=== PATIENT | male | born 1985 | race African-American/Black ===

== ENCOUNTER 2017-05-21 06:32 | Day surgery (SDC) | payer OTHER ==
[~2017-05-21] VITALS: Ht 188 cm; Wt 74.8 kg
[2017-05-21 07:11] VITALS: BP 129/76; Ht 188 cm; Wt 74.8 kg
[2017-05-21] MEDS ORDERED: HYDROCODONE-APA1 TAB PO (09:07)
--- NOTE | 2017-05-21 17:57 | NUR ---
1100--IV DC'D. SHANNON CROFT 1115--DISCHARGE INSTRUCTIONS GIVEN, PT VERBALIZES UNDERSTANDING. PT OFF UNIT VIA WC. SHANNON CROFT
--- NOTE | 2017-06-08 14:05 | OP ---
PATIENT NAME: MELYSSA CALIX MEDICAL RECORD: [id number] :81 LOCATION:D.OPS ADMISSION DATE: SURGEON: JOYCE CHRISTOPHER MD DATE OF OPERATION: 05/21/2017 Orthopedic Surgery Operative Note PREOPERATIVE DIAGNOSES: Left scaphoid fracture. POSTOPERATIVE DIAGNOSIS: Left scaphoid fracture. PROCEDURE: Open reduction internal fixation of left scaphoid fracture. SURGEON: Joyce Christopher MD ANESTHESIA: General. INTRAOPERATIVE COMPLICATIONS: None. OPERATIVE SUMMARY IN DETAIL: After obtaining the appropriate preoperative orthopedic surgery consent as well as anesthetic consultation, evaluation and clearance, the patient was brought to the operating room and placed on the operating table in supine position. After adequate general laryngeal mask was administered, tourniquet was placed about the proximal aspect of the left upper extremity. Left upper extremity was then prepped and draped in a routine sterile fashion. The arm was elevated and exsanguinated, tourniquet inflated to 250 mmHg. Under direct fluoroscopic guidance, a guide pin for the double compression cannulated screw was placed from the proximal pole of the scaphoid to the distal pole of the scaphoid across the fracture site. Measurements were taken. A screw was put into place with good compression across the fracture site. Radiographs were taken and submitted for final radiologist review. The wound was irrigated and closed with a single suture. A volar splint was applied. The patient was awakened, taken to recovery room in stable condition. All final needle and sponge counts were correct. TRANSINT:[id number] Voice Confirmation ID: [id number] DOCUMENT ID: [id number] JOYCE CHRISTOPHER MD at 1405 CC: [id number] DICTATION DATE: 06/08/17 1103 AUTOGLAZIER: 06/08/17 1215 [facility] 05/21/17 [place] [id number]
== END 2017-05-21 11:15 | disposition home or self-care (01) ==
LOC: D.OPS 06:32
DX: S62.002A Unspecified fracture of navicular [scaphoid] bone of left wrist, initial encounter for closed fracture (principal); Z87.891 Personal history of nicotine dependence; Z01.812 Encounter for preprocedural laboratory examination